=== PATIENT | male | born 1970 | race Caucasian/White ===

== ENCOUNTER 2021-10-05 20:23 | Inpatient (IN) | payer OTHER ==
[~2021-10-05] VITALS: Ht 162.6 cm; Wt 64.9 kg
--- NOTE | 2021-10-05 20:55 | NUR ---
PT BIBRA D/T AMS, PT IS NOT AROUSABLE TO PAINFUL STIMULI.PT PLACED ON MONITOR VSS.
[2021-10-05 21:15] LABS: BASOPHILS # (AUTO) 0.1 K/uL (0.0-0.2); BASOPHILS % (AUTO) 1.2 % (0.0-2.0); EOSINOPHILS % (AUTO) 1.3 % (0.0-6.0); HEMATOCRIT 25 % (39-51); HEMOGLOBIN 8.7 g/dL (13.5-17.5); LYMPHOCYTES # (AUTO) 0.6 K/uL (0.8-4.8); LYMPHOCYTES % (AUTO) 9.6 % (20.0-44.0); MEAN CORPUSCULAR HGB CONC 35 g/dl (31.0-36.0); MEAN CORPUSCULAR VOLUME 98 fL (80-96); MONOCYTES # (AUTO) 0.5 K/uL (0.1-1.30); MONOCYTES % (AUTO) 7.9 % (2.0-12.0); NEUTROPHILS # (AUTO) 5.4 K/uL (1.8-8.9); PLATELET COUNT (AUTO) 200 K/uL (150-450); RED BLOOD CELL COUNT(AUTO) 2.57 MIL/uL (4.5-6.0); WHITE BLOOD COUNT (AUTO) 6.7 K/uL (4.3-11.0)
[2021-10-05 21:20] LABS: CALCIUM, SERUM 7.6 mg/dL (8.5-10.1); CARBON DIOXIDE 21 mmol/L (21-32); CHLORIDE 101 mmol/L (98-107); CREATININE 2.2 mg/dL (0.6-1.3); GLUCOSE 160 mg/dL (74-106); POTASSIUM 5.1 mmol/L (3.5-5.1); SODIUM SERUM 133 mmol/L (136-145); UREA NITROGEN, BLOOD 36 mg/dL (7-18)
[2021-10-05 21:25] LABS: ALANINE AMINOTRANSFERASE 13 U/L (12-78); ALKALINE PHOSPHATASE 291 U/L (46-116); ASPARTATE AMINOTRANSFERASE 41 U/L (15-37); BILIRUBIN,DIRECT 0.6 mg/dL (0.0-0.2); BILIRUBIN,TOTAL 1.8 mg/dL (0.2-1.0); TOTAL PROTEIN, SERUM 6.3 g/dL (6.4-8.2)
[2021-10-05] MEDS ORDERED: CEFTRIAXONE 1GM BAG (ER ONLY) 50 ML IV ONE (21:46)
[2021-10-05 21:55] LABS: BILIRUBIN,URINE NEGATIVE (NEGATIVE); COLOR,URINE YELLOW (YELLOW); LEUKOCYTE ESTERASE ,URINE NEGATIVE (NEGATIVE); NITRITE, URINE NEGATIVE (NEGATIVE); PROTEIN,URINE 30 mg/dl (NEGATIVE); UGLUCOSE NEGATIVE (NEGATIVE); UROBILINOGEN,URINE 0.2 EU/dL (0.2)
[2021-10-05 22:00] LABS: MAGNESIUM 2.7 mg/dL (1.8-2.4)
[2021-10-05] MEDS ORDERED: AZITHROMYCIN 500 MG in IV D5W 250 ML IV ONE (22:00)
[2021-10-05] MEDS ORDERED: MORPHINE SULFATE INJ 2 MG/ML DISP.SYRIN IV PRN ×2 (22:00→23:00)
[2021-10-05] MEDS ORDERED: CEFTRIAXONE 1 G in IV D5W 50 ML IV ONE (22:00)
[2021-10-05] MEDS ORDERED: ONDANSETRON HCL/PF 4 MG/2 ML VIAL IVP PRN ×2 (22:00→23:00)
[2021-10-05] MEDS: LACTULOSE 10 G/15 ML UDC (PYXIS) PO SCH (22:00)
[2021-10-05] MEDS ORDERED: ACETAMINOPHEN 325 MG TABLET PO PRN ×2 (22:00→23:00)
[2021-10-05] MEDS: PANTOPRAZOLE 40 MG VIAL IV SCH (22:00)
[2021-10-05] MEDS: RIFAXIMIN 550 MG TABLET PO SCH (22:00)
[2021-10-05] MEDS ORDERED: AZITHROMYCIN 500 MG VIAL ONE (22:03)
[2021-10-05 22:09] LABS: BACTERIA,URINE RARE /HPF (None Seen); HYALINE CASTS, URINE Few /LPF (None Seen); SQUAMOUS EPITHELIAL CELL,UR 0-2 /HPF (None Seen); WBC,URINE 0-2 /HPF (0-3)
[2021-10-05 22:59] LABS: ABG PCO2 27.3 mmHg (35.0-45.0); ABG PH 7.475 (7.350-7.450); ABG PO2 74.5 mmHg (75.0-100.0); COHb 0.3 % (0.5-1.5); MetHb 0.4 % (0.0-1.5); O2Hb 93.9 % (94.0-97.0); SITE, ABG Right Radial; VENT MODE, BG Room Air
[2021-10-05] MEDS ORDERED: LABETALOL 20 MG/4 ML VIAL IV PRN (23:00)
[2021-10-05] MEDS ORDERED: MIDODRINE HCL (5MG) 5 MG TABLET PO PRN (23:00)
[2021-10-05] MEDS ORDERED: DEXTROSE 50%-WATER 50 ML DISP.SYRIN IV PRN (23:30)
[2021-10-05] MEDS ORDERED: FUROSEMIDE 40 MG/4 ML VIAL ONE (23:47)
[2021-10-05] MEDS: BLOOD SUGAR DIAGNOSTIC 1 EACH STRIP IN SCH (23:48)
[2021-10-05] MEDS: FUROSEMIDE 40 MG/4 ML VIAL IV SCH (23:48)
[2021-10-06] MEDS ORDERED: LACTULOSE 10 G/15 ML UDC (PYXIS) ONE (02:55)
[2021-10-06] MEDS ORDERED: RIFAXIMIN 550 MG TABLET ONE (03:08)
[2021-10-06 05:19] LABS: BASOPHILS # (AUTO) 0.1 K/uL (0.0-0.2); BASOPHILS % (AUTO) 0.7 % (0.0-2.0); EOSINOPHILS % (AUTO) 0.3 % (0.0-6.0); HEMATOCRIT 26 % (39-51); HEMOGLOBIN 9.2 g/dL (13.5-17.5); LYMPHOCYTES # (AUTO) 0.8 K/uL (0.8-4.8); LYMPHOCYTES % (AUTO) 8.9 % (20.0-44.0); MEAN CORPUSCULAR HGB CONC 35 g/dl (31.0-36.0); MEAN CORPUSCULAR VOLUME 98 fL (80-96); MONOCYTES # (AUTO) 0.9 K/uL (0.1-1.30); MONOCYTES % (AUTO) 10.3 % (2.0-12.0); NEUTROPHILS # (AUTO) 7.2 K/uL (1.8-8.9); NEUTROPHILS % (AUTO) 79.8 % (43.0-81.0); PLATELET COUNT (AUTO) 209 K/uL (150-450); RED BLOOD CELL COUNT(AUTO) 2.66 MIL/uL (4.5-6.0)
[2021-10-06 05:34] LABS: BILIRUBIN,TOTAL 1.9 mg/dL (0.2-1.0); CALCIUM, SERUM 7.8 mg/dL (8.5-10.1); CREATININE 2.4 mg/dL (0.6-1.3); MAGNESIUM 2.8 mg/dL (1.8-2.4); PHOSPHORUS 4.7 mg/dL (2.5-4.9); TOTAL PROTEIN, SERUM 6.6 g/dL (6.4-8.2)
--- NOTE | 2021-10-06 05:39 | NUR ---
AMMONIA 236
[2021-10-06] MEDS: BLOOD SUGAR DIAGNOSTIC 1 EACH STRIP IN SCH ×4 (07:30→21:24)
[2021-10-06] MEDS ORDERED: LACT10SO3 PO (08:56)
[2021-10-06] MEDS ORDERED: CHOL200059 PO (08:56)
[2021-10-06] MEDS ORDERED: AMLO-213 PO (08:56)
[2021-10-06] MEDS ORDERED: THIA50TA10 PO (08:56)
[2021-10-06] MEDS ORDERED: PANT20TA17 PO (08:56)
[2021-10-06] MEDS ORDERED: FOLI0.4T6 PO (08:56)
[2021-10-06] MEDS ORDERED: FERR325T23 PO (08:56)
[2021-10-06] MEDS ORDERED: SPIR25TA6 PO (08:56)
[2021-10-06] MEDS ORDERED: CEFEPIME 1 GM in IV D5W 50 ML IV SCH (09:00)
[2021-10-06] MEDS: RIFAXIMIN 550 MG TABLET PO SCH ×2 (09:00→17:18)
[2021-10-06] MEDS ORDERED: FUROSEMIDE 40 MG TABLET PO SCH (09:00)
[2021-10-06] MEDS: LACTULOSE 10 G/15 ML UDC (PYXIS) PO SCH ×4 (09:00→21:24)
[2021-10-06] MEDS ORDERED: SPIRONOLACTONE 25 MG TABLET PO SCH (09:00)
[2021-10-06] MEDS ORDERED: PANTOPRAZOLE 40 MG VIAL ONE (09:35)
[2021-10-06] MEDS: PANTOPRAZOLE 40 MG VIAL IV SCH ×2 (09:38→17:15)
[2021-10-06] MEDS ORDERED: FUROSEMIDE 40 MG/4 ML VIAL ONE (09:41)
[2021-10-06] MEDS: FUROSEMIDE 40 MG/4 ML VIAL IV SCH (09:43)
[2021-10-06] MEDS: CEFEPIME 2 GM in IV D5W 100 ML IV SCH ×2 (09:49→20:31)
--- NOTE | 2021-10-06 10:39 | NUR ---
SPOKE TO SON ON THE PHONE [phone]
--- NOTE | 2021-10-06 11:07 | NUR ---
GOT BED 312-1
--- NOTE | 2021-10-06 11:32 | NUR ---
REPORT GIVE TO IVIS FOR BAO
--- NOTE | 2021-10-06 11:45 | NUR ---
SYRUP MAKER COOK NOTE- 51 Y/O MALE PT ADMITTED FOR ACUTE ENCEPHALOPATHY. AMMONIA 236, LACTIC ACID 2.7. PT W LIVER CIRRHOSIS. PT IS UNRESPONSIVE. UNABLE TO OBTAIN ANY ORIENTATION OR INFORMATION. VS- BP- 151/80, HR- 80, RR- 18, T- 98.6, SATS 99% RA. GOMEZ CATHETER VTO GRAVITY W CLEAR YELLOW UA DRAINING. 20G IV HEPLOCK LFT HAND. PT CHEST CT W PULMONARY CONGESTION. CHEST W RALES AND RHONCHI ON AUSCULTATION. ABDOMEN DISTENDED W HYPOACTIVE FAINT BS. HERNIA AT UMBILICUS. SKIN INTACT. PERIPHERAL PULSES +, CAPILLARY REFILL < [address] SEC[address] IN [address]. STRICT NPO AT PRESENT. SIDE RAILS UP, BED LOCKED. MONITOR/ ASSIST
--- NOTE | 2021-10-06 11:45 | NUR ---
RN NOTE- PT ON UNIT. VS TAKEN BP- 151/81, HR- 80, RR- 18, T- 98.6, SATS AT 99% RA
[2021-10-06 13:00] VITALS: BP 151/81
--- NOTE | 2021-10-06 13:47 | NUR ---
RN NOTE- ACCU CHECK BS- 93
--- NOTE | 2021-10-06 14:42 | NUR ---
RN NOTE- CLEANED AND CHANGED PT. NOTED GREEN COLORED STOOLS. SOME JAUNDICE PRESENT. PT W BLOOD TO INSIDE OF LIP AND TONGUE. APPEARS TO HAVE BITTEN TONGUE PERHAPS. I SET UP SUCTION W CYNTHIA AT BEDSIDE. HOB RAISED. MONITORING
--- NOTE | 2021-10-06 15:48 | NUR ---
RN NOTE- SPOKE W SON EOIO - PT IS A FULL CODE . NO ADVANCED DIRECTIVE
[2021-10-06 16:00] VITALS: BP 142/86
[2021-10-06] MEDS: INSULIN REGULAR, HUMAN 100 UNIT/ML 3 ML VIAL SQ PRN (17:36)
--- NOTE | 2021-10-06 18:37 | NUR ---
RN CLOSING NOTE- PT OBTUNDED, VS STABLE. ASCITES AND JAUNDICE PRESENT. SIDE RAILS UP, BED LOCKED. FOR US PARACENTESIS TOMORROW MORNING. CONSENT DONE. BLOOD TO MOUTH / ORAL CAVITY. PT BIT TONGUE. SUCTION SET UP IN CASE REQUIRED. MONITOR / ASSIST
--- NOTE | 2021-10-06 19:34 | NUR ---
Patient is currently in bed obtunded, moves with pain but does not open eyes. No signs of cardiac or resp. distress at this time. NG-tube in place, Quintana cath in place and draining clear yellow urine. Ascites obvious with hernia at umbilicus. skin jaundiced. PIV #20G left hand intact and patent, flushed well. SR on the monitor in 80s at this time. Will continue to monitor pt. very closely.
[2021-10-06 20:00] VITALS: BP 142/91
--- NOTE | 2021-10-06 23:29 | NUR ---
Patient woke up, opening eyes, moving hands, still not speaking, but facial grimacing, moaning, and squirming, will medicate for non-verbal indicators of pain.
[2021-10-07] VITALS: BP 143/75
[2021-10-07 04:00] VITALS: BP 140/84
--- NOTE | 2021-10-07 06:10 | NUR ---
Patient is currently responsive to touch only, not verbal only opening eyes, moaning noises and squirming. Repositioned q2h, kept clean and dry. Had 500cc output to beltrán cath and x1 BM. Strict aspiration measures in place -no s/s of aspiration. Only minimal non-productive cough since pt.s admission. Was medicated earlier in shift x1 for facial grimacing, squirming, and moaning. No s/s of hypo or hyperglycemia noted. Patient has been SR on monitor HR 60s-70s. Daily weight 155.
[2021-10-07 06:42] LABS: BASOPHILS # (AUTO) 0.1 K/uL (0.0-0.2); BASOPHILS % (AUTO) 2.1 % (0.0-2.0); EOSINOPHILS % (AUTO) 2.6 % (0.0-6.0); HEMATOCRIT 24 % (39-51); HEMOGLOBIN 8.4 g/dL (13.5-17.5); LYMPHOCYTES % (AUTO) 16.7 % (20.0-44.0); MEAN CORPUSCULAR HGB CONC 36 g/dl (31.0-36.0); MEAN CORPUSCULAR VOLUME 99 fL (80-96); MONOCYTES # (AUTO) 0.7 K/uL (0.1-1.30); MONOCYTES % (AUTO) 11.4 % (2.0-12.0); NEUTROPHILS # (AUTO) 4.2 K/uL (1.8-8.9); NEUTROPHILS % (AUTO) 67.2 % (43.0-81.0); PLATELET COUNT (AUTO) 146 K/uL (150-450); RED BLOOD CELL COUNT(AUTO) 2.39 MIL/uL (4.5-6.0); WHITE BLOOD COUNT (AUTO) 6.2 K/uL (4.3-11.0)
[2021-10-07] MEDS: BLOOD SUGAR DIAGNOSTIC 1 EACH STRIP IN SCH ×4 (06:51→21:04)
[2021-10-07 07:15] LABS: CALCIUM, SERUM 7.7 mg/dL (8.5-10.1); CREATININE 2.2 mg/dL (0.6-1.3); MAGNESIUM 2.6 mg/dL (1.8-2.4); PHOSPHORUS 5.2 mg/dL (2.5-4.9); POTASSIUM 4.6 mmol/L (3.5-5.1)
--- NOTE | 2021-10-07 07:25 | NUR ---
ASSEMBLER DIELECTRIC HEATER OPENING NOTE PATIENT RESTING IN BED, A/O X 0 MUMBLED. PATIENT STABLE ON ROOM AIR, BREATHING EVENLY AND NONLABORED NOTED. PATIENT WITH EXTERNAL POLICY CANCELLATION CLERK, RHYTHM SHOWS SR @ 70, NO CARDIAC DISTRESS NOTED. IV ACCESS AT LFA # 20, INTACT AND PATENT, FLUSHED WELL. PATIENT PLACE ON NG TUBE AT RIGHT NARES, PATIENT ON NPO WITHOUT MEDICATION. PATIENT PLACE ON GOMEZ CATHETER AND DRAINGE CLEAR, YELLOW URINE BY GRAVITY. ASCITES WITH HERNIA AT UMBLICUS, SKIN JAUNDICE. SAFETY MEASURES PROVIDED; LOW BED, BED LOCKED, BED ALARM ON, SIDE RAILS X2, AND CALL LIGHT WITHIN REACH. WILL CONTINUE TO PLAN OF CARE.
[2021-10-07 08:00] VITALS: BP 146/80
[2021-10-07] MEDS: CEFEPIME 2 GM in IV D5W 100 ML IV SCH ×2 (08:38→20:14)
[2021-10-07] MEDS: LACTULOSE 10 G/15 ML UDC (PYXIS) PO SCH ×4 (08:41→20:14)
[2021-10-07] MEDS: PANTOPRAZOLE 40 MG VIAL IV SCH ×2 (08:41→16:36)
[2021-10-07] MEDS: RIFAXIMIN 550 MG TABLET PO SCH ×2 (08:41→16:36)
[2021-10-07] MEDS: SPIRONOLACTONE 25 MG TABLET NG SCH (08:42)
[2021-10-07] MEDS: FUROSEMIDE 40 MG/4 ML VIAL IV SCH (08:42)
--- NOTE | 2021-10-07 10:37 | NUR ---
RN NOTES SPEECH THERAPIST CAME TO ASSESS AND DO SWALLOW EVAL, BUT PT IS VERY LETHARGIC AND NOT FOLLOWING COMMANDS. SWALLOW EVAL NOT DONE AND ST WILL TRY TOMORROW AGAIN. DR GORMAN ON UNIT AND MADE AWARE WITH ORDER TO ADMINISTER IVF OF D5 1/2 NS AT 50ML/HR. WILL CARRY OUT ORDER.
--- NOTE | 2021-10-07 10:45 | NUR ---
PATIENT WAS DONE PARECENTHESIS BY DR. FRIAS, FLUID OUT 5060CC AND SENT TO LAB.
[2021-10-07] MEDS: IV D5/0.45 NACL 1,000 ML IV PRN (11:09)
[2021-10-07 12:00] VITALS: BP 146/80
[2021-10-07] MEDS: INSULIN REGULAR, HUMAN 100 UNIT/ML 3 ML VIAL SQ PRN ×2 (12:45→16:53)
[2021-10-07 16:00] VITALS: BP 141/81
--- NOTE | 2021-10-07 18:20 | NUR ---
OUTSIDE SALES ADVERTISING EXECUTIVE CLOSING NOTE PATIENT RESTING IN BED, A/O X 2,3 VERBALLY RESPONSE TO NAME, PERSON, AND ON ROOM AIR, BREATHING EVENLY AND NONLABORED NOTED. PATIENT WITH EXTERNAL COIL CONNECTOR REPAIRER, RHYTHM SHOWS SR @ 73 SINUS RHYTHM, NO CARDIAC DISTRESS NOTED. . IV ACCESS AT LFA # 20, RUNNING D11/01 @50CC/HR . INTACT AND PATENT. PATIENT ON NG TUBE AT RIGHT NARE, PATIENT ON NPO. PATIENT ON GOMEZ CATHETER AND DRAINAGE CLEAR, YELLOW URINE BY GRAVITY. ASCITES WITH HERNIA AT UMBILICUS. SAFETY MEASURES PROVIDED; LOW BED, BED LOCKED, BED ALARM ON, SIDE RAILS X2, AND CALL LIGHT WITHIN REACH. WILL ENDORSE CARE TO THE SHUTTLE BUGGY OPERATOR NURSE.
[2021-10-07 20:00] VITALS: BP 140/82
--- NOTE | 2021-10-07 20:02 | NUR ---
RESOURCE CONSERVATION SPECIALIST OPENING NOTES RECEIVED PT IN BED, AWAKE, AOx2-3. ON RA AND TOLERATING WELL. NO SOB NOTED. NO S/SX OF RESPIRATORY DISTRESS NOTED. TELE MONITOR DETECTS SINUS RHYTHM WITH RATE OF 65.IV ACCESS NOTED IN LFA #20 RUNNING D51/2 NS @ 50 ML/HR. NG TUBE IN R NARE. GOMEZ CATHETER DRAINING CLEAR, YELLOW URINE. SAFETY PRECAUTIONS IN PLACE: BED IN LOWEST, LOCKED POSITION, SIDERAILS UPx2, AND BRAKES ON. TABLE AND CALL LIGHT WITHIN REACH. WILL CONTINUE TO MONITOR.
[2021-10-08] VITALS: BP 151/94
[2021-10-08] MEDS: IV D5/0.45 NACL 1,000 ML IV PRN (00:54)
[2021-10-08] MEDS: BLOOD SUGAR DIAGNOSTIC 1 EACH STRIP IN SCH ×4 (06:33→22:37)
[2021-10-08 06:41] LABS: BASOPHILS # (AUTO) 0.1 K/uL (0.0-0.2); EOSINOPHILS % (AUTO) 5.6 % (0.0-6.0); HEMATOCRIT 23 % (39-51); LYMPHOCYTES # (AUTO) 1.1 K/uL (0.8-4.8); LYMPHOCYTES % (AUTO) 20.2 % (20.0-44.0); MEAN CORPUSCULAR HGB CONC 35 g/dl (31.0-36.0); MEAN CORPUSCULAR VOLUME 99 fL (80-96); MONOCYTES # (AUTO) 0.6 K/uL (0.1-1.30); MONOCYTES % (AUTO) 12.1 % (2.0-12.0); NEUTROPHILS # (AUTO) 3.2 K/uL (1.8-8.9); NEUTROPHILS % (AUTO) 60.1 % (43.0-81.0); PLATELET COUNT (AUTO) 149 K/uL (150-450); RED BLOOD CELL COUNT(AUTO) 2.31 MIL/uL (4.5-6.0); WHITE BLOOD COUNT (AUTO) 5.3 K/uL (4.3-11.0)
--- NOTE | 2021-10-08 06:48 | NUR ---
TIP CEMENTER CLOSING NOTES PT IN BED, ASLEEP, AWAKENS TO VERBAL STIMULI. AOx2-3. ON RA AND TOLERATING WELL. NO SOB NOTED. NO S/SX OF RESPIRATORY DISTRESS NOTED. TELE MONITOR DETECTS SINUS RHYTHM WITH RATE OF 65. IV ACCESS NOTED IN LFA #20 RUNNING D51/2 NS @ 50 ML/HR. NG TUBE IN R NARE. GOMEZ CATHETER DRAINING CLEAR, YELLOW URINE. ALL NEEDS MET. PT KEPT CLEAN AND DRY. SAFETY PRECAUTIONS IN PLACE: BED IN LOWEST, LOCKED POSITION, SIDERAILS UPx2, AND BRAKES ON. TABLE AND CALL LIGHT WITHIN REACH. WILL ENDORSE TO ONCOMING SHIFT FOR BAO.
[2021-10-08 07:03] LABS: CALCIUM, SERUM 7.7 mg/dL (8.5-10.1); CREATININE 1.7 mg/dL (0.6-1.3); MAGNESIUM 2.2 mg/dL (1.8-2.4); PHOSPHORUS 3.7 mg/dL (2.5-4.9)
--- NOTE | 2021-10-08 07:15 | NUR ---
FISH DRESSING MACHINE FEEDER OPENING NOTE PATIENT SLEEPING IN BED, A/O X 2,3 CONFUSED. ON ROOM AIR, BREATHING EVENLY AND NONLABORED NOTED. PATIENT WITH EXTERNAL DAUB COLOR MIXER, RHYTHM SHOWS SR @ 73 SINUS RHYTHM, NO CARDIAC DISTRESS NOTED. . IV ACCESS AT LFA # 20, RUNNING D11/01 @50CC/HR . INTACT AND PATENT. PATIENT ON NG TUBE AT RIGHT NARE, PATIENT ON NPO. PATIENT ON GOMEZ CATHETER AND DRAINAGE CLEAR, YELLOW URINE BY GRAVITY. ASCITES WITH HERNIA AT UMBILICUS. SAFETY MEASURES PROVIDED; LOW BED, BED LOCKED, BED ALARM ON, SIDE RAILS X2, AND CALL LIGHT WITHIN REACH. WILL CONTINUE TO PLAN OF CARE.
[2021-10-08 08:00] VITALS: BP 126/75
[2021-10-08] MEDS: FUROSEMIDE 40 MG/4 ML VIAL IV SCH (08:31)
[2021-10-08] MEDS: SPIRONOLACTONE 25 MG TABLET NG SCH (08:31)
[2021-10-08] MEDS: RIFAXIMIN 550 MG TABLET PO SCH ×2 (08:38→17:11)
[2021-10-08] MEDS: LACTULOSE 10 G/15 ML UDC (PYXIS) PO SCH ×4 (08:39→21:27)
[2021-10-08] MEDS: CEFEPIME 2 GM in IV D5W 100 ML IV SCH ×2 (08:39→21:27)
[2021-10-08] MEDS: PANTOPRAZOLE 40 MG VIAL IV SCH ×2 (08:39→17:11)
--- NOTE | 2021-10-08 09:16 | NUR ---
RN NOTES PATIENT HAD SWALLOW EVALUATION DONE THIS MORNING. ABLE TO SWALLOW WELL WITH NO ASPIRATION NOTED. PATIENT PLACE ON PUREE DIET BY SPEECH THERAPIST. SPEECH THERAPIST STATED SHE WILL COME TOMORROW TO CHECK ON PATIENT IF HE NEEDS ADVANCE DIET.
--- NOTE | 2021-10-08 10:22 | NUR ---
RN NOTE DR. GORMAN ON UNIT AND INFORMED THAT PATIENT PASSED THE SWALLOW EVAUATION THIS MORNING AND WAS PLACED PUREE DIET BY . DR GORMAN WITH ORDER TO D/C NGT. NG TUBE REMOVED AND PATIENT TOLERATED WELL.
--- NOTE | 2021-10-08 11:05 | NUR ---
RN notes Pt had PT evaluation today by physical therapist Obinna. Pt is slow and unsteady but walked with FWW with Contact Guard Assist.
[2021-10-08] MEDS: INSULIN REGULAR, HUMAN 100 UNIT/ML 3 ML VIAL SQ PRN ×3 (11:41→22:37)
[2021-10-08 12:00] VITALS: BP 144/87
[2021-10-08 16:00] VITALS: BP 130/83
--- NOTE | 2021-10-08 18:49 | NUR ---
SHAPING MACHINE OPERATOR CLOSING NOTE PATIENT AWAKING IN BED, A/O X 2,3. PATIENT ON ROOM AIR, BREATHING EVENLY AND NONLABORED NOTED.PATIENT WITH EXTERNAL STUDENT SERVICES COORDINATOR, RHYTHM SHOWS SR @ 65 SINUS RHYTHM, NO CARDIAC DISTRESS NOTED. IV ACCESS AT LFA # 20, RUNNING D11/01 @50CC/HR . INTACT AND PATENT. PATIENT ON PUREED DIET. PATIENT ON GOMEZ CATHETER AND DRAINAGE CLEAR, YELLOW URINE BY GRAVITY. ASCITES WITH HERNIA AT UMBILICUS. SAFETY MEASURES PROVIDED; LOW BED, BED LOCKED, BED ALARM ON, SIDE RAILS X2, AND CALL LIGHT WITHIN REACH. WILL ENDORSE TO PLAN OF CARE TO INDUSTRIAL SAFETY AND HEALTH MANAGER NURSE.
--- NOTE | 2021-10-08 19:20 | NUR ---
RN TELEHEALTH OPENING NOTE PATIENT AWAKE IN BED WATCHING TV. PATIENT APPEARS PLEASANT. HE IS A/OX3. NO S/S OF DISTRESS; BREATHING SYMMETRICAL; SR 70. PATIENT STATES NO PAIN AT THIS TIME. WILL CONTINUE TO MONITOR PATIENT THROUGHOUT SHIFT. SAFETY MEASURES IN PLACE: BED AT LOWEST POSITION, RAILS UP X2, CALL RIVERA WITHIN REACH.
[2021-10-08 20:00] VITALS: BP 140/79
[2021-10-09] VITALS: BP 145/82
[2021-10-09 04:00] VITALS: BP 140/81
--- NOTE | 2021-10-09 06:21 | NUR ---
TELEVISION OPERATOR CLOSING NOTE PATIENT IS AWAKE IN BED. A/OX2-3. NO PAIN REPORTED. COLOR GRINDER REPORTS SR 61. PATIENT'S BS HAS BEEN CONTROLLED DURING SHIFT. PATIENT STILL EXHIBITS SOME CONFUSION BUT HAS GREATLY IMPROVED. COMPARING THIS MORNING TO LAST NIGHT UPON RECEIVING THIS PATIENT FROM PREVIOUS SHIFT PATIENT HAS BEEN ABLE TO SUSTAIN HIS CURRENT A/OX2-3 (INITIAL ER BASELINE OF UNAROUSABLE). NO S/S OF DISTRESS; BREATHING SYMMETRICAL. ALL SAFETY MEASURES IN PLACE: BED AT LOWEST POSITION, RAILS UP X2, CALL RIVERA WITHIN REACH. WILL ENDORSE TO THE FOLLOWING SHIFT.
[2021-10-09] MEDS: BLOOD SUGAR DIAGNOSTIC 1 EACH STRIP IN SCH ×2 (06:34→12:45)
[2021-10-09] MEDS: INSULIN REGULAR, HUMAN 100 UNIT/ML 3 ML VIAL SQ PRN (06:35)
[2021-10-09 06:47] LABS: BASOPHILS # (AUTO) 0.1 K/uL (0.0-0.2); BASOPHILS % (AUTO) 2.1 % (0.0-2.0); EOSINOPHILS % (AUTO) 8.8 % (0.0-6.0); HEMATOCRIT 25 % (39-51); HEMOGLOBIN 8.9 g/dL (13.5-17.5); LYMPHOCYTES % (AUTO) 18.6 % (20.0-44.0); MEAN CORPUSCULAR HGB CONC 36 g/dl (31.0-36.0); MEAN CORPUSCULAR VOLUME 98 fL (80-96); MONOCYTES # (AUTO) 0.6 K/uL (0.1-1.30); MONOCYTES % (AUTO) 11.6 % (2.0-12.0); NEUTROPHILS # (AUTO) 3.3 K/uL (1.8-8.9); NEUTROPHILS % (AUTO) 58.9 % (43.0-81.0); PLATELET COUNT (AUTO) 163 K/uL (150-450); RED BLOOD CELL COUNT(AUTO) 2.51 MIL/uL (4.5-6.0); WHITE BLOOD COUNT (AUTO) 5.5 K/uL (4.3-11.0)
[2021-10-09 07:14] LABS: ALBUMIN 2.4 g/dL (3.4-5.0); BILIRUBIN,DIRECT 0.7 mg/dL (0.0-0.2); BILIRUBIN,TOTAL 2.1 mg/dL (0.2-1.0); CALCIUM, SERUM 7.6 mg/dL (8.5-10.1); CREATININE 1.6 mg/dL (0.6-1.3); MAGNESIUM 2.2 mg/dL (1.8-2.4); PHOSPHORUS 3.1 mg/dL (2.5-4.9); POTASSIUM 3.6 mmol/L (3.5-5.1); TOTAL PROTEIN, SERUM 5.7 g/dL (6.4-8.2)
[2021-10-09 08:00] VITALS: BP 131/57
[2021-10-09] MEDS: LACTULOSE 10 G/15 ML UDC (PYXIS) PO SCH ×2 (08:27→13:20)
[2021-10-09] MEDS: RIFAXIMIN 550 MG TABLET PO SCH (08:28)
[2021-10-09] MEDS: CEFEPIME 2 GM in IV D5W 100 ML IV SCH (08:28)
[2021-10-09] MEDS: PANTOPRAZOLE 40 MG VIAL IV SCH (08:28)
[2021-10-09] MEDS: SPIRONOLACTONE 25 MG TABLET NG SCH (08:28)
[2021-10-09] MEDS: FUROSEMIDE 40 MG/4 ML VIAL IV SCH (08:29)
[2021-10-09 12:00] VITALS: BP 143/75
--- NOTE | 2021-10-09 14:42 | NUR ---
GAVE REPORT TO LYNETTE. PATIENT IS STABLE.
--- NOTE | 2021-10-09 15:00 | NUR ---
tele batch mixing truck driver: notes received pt in bed awake; [place] speaking only. f/c draining well to gravity. reality orientation provided prn with [place] staff translating. instructed to call for assistance. will continue to monitor.
[2021-10-09 16:00] VITALS: BP 126/80
[2021-10-09] MEDS ORDERED: SPIR25TA6 NG (16:32)
[2021-10-09] MEDS ORDERED: RIFA550T PO (16:32)
[2021-10-09] MEDS ORDERED: LACT20SO4 PO (16:32)
[2021-10-09] MEDS ORDERED: FURO-144 PO (16:32)
--- NOTE | 2021-10-09 17:15 | NUR ---
tele hardwood sawyer: notes pt for discharge home today per dr. moore's order. pt made aware with [place] staff translating. beltrán catheter removed, candace. well. iv fluids stopped. pt says to call son to pick him up per curtain inspector. will continue to monitor.
--- NOTE | 2021-10-09 17:22 | NUR ---
tele project executive: notes montrell (son) notified and made aware re: d'c home today and will pick him up in an hour. pt made aware.
--- NOTE | 2021-10-09 17:45 | NUR ---
tele hotel office manager: notes tele and h/l removed with tip intact. awaiting for son to pick him up.
--- NOTE | 2021-10-09 18:00 | NUR ---
tele rn homecare: notes discharge instructions with e scripts prescriptions given via telephone to montrell (son). awaiting for him to pickle processor pt.
--- NOTE | 2021-10-09 18:40 | NUR ---
tele ring conductor: discharge discharge home in stable condition accompanied by son via private car with all d'c papers and valuables.
[2021-10-10] MEDS ORDERED: FUROSEMIDE 40 MG TABLET PO SCH (09:00)
== END 2021-10-09 18:56 | disposition home health service (06) | DRG 280 ==
LOC: ER 20:25 → TRANSITION 23:12 → TELE 10-06 11:08
PROVIDERS: ADMIT Internal Medicine; ATTEND Student in an Organized Health Care Education/Training Program
PROC: 0W9G3ZZ Drainage of Peritoneal Cavity, Percutaneous Approach (ICD-10-PCS; principal; 2021-10-07)
DX: K70.40 Alcoholic hepatic failure without coma (principal); K70.31 Alcoholic cirrhosis of liver with ascites; N17.0 Acute kidney failure with tubular necrosis; G93.41 Metabolic encephalopathy; E44.0 Moderate protein-calorie malnutrition; E87.2 Acidosis; E87.1 Hypo-osmolality and hyponatremia; Z20.822 Contact with and (suspected) exposure to COVID-19; D53.9 Nutritional anemia, unspecified; N18.9 Chronic kidney disease, unspecified; R74.01 Elevation of levels of liver transaminase levels; Z68.24 Body mass index [BMI] 24.0-24.9, adult; I12.9 Hypertensive chronic kidney disease with stage 1 through stage 4 chronic kidney disease, or unspecified chronic kidney disease
CPT/HCPCS: 36415; 36600; 70450-TC; 71045-TC; 71250-TC; 76942-TC; 80048-TC; 80053-TC; 80076-TC; 81001; 82040-TC; 82140-TC; 82803-TC; 82962-TC; 83605-TC; 83735-TC; 84100-TC; 84484-TC; 85025-TC; 85730-TC; 87040-TC; 87070-TC; 87081-TC; 87086-TC; 89051-TC; 92521; 92526; 97116-TC; 97530-TC; C9113; C9803; G0378; G0480; J0456; J0692; J0696; J1940; J2270; J2405; J7050; J7060